=== PATIENT | female | born 1975 | race Caucasian/White ===

== ENCOUNTER 2024-06-30 00:43 | Day surgery (SDC) | payer OTHER, SELFPAY ==
[2024-06-23 09:49] VITALS: BMI 40.1
--- NOTE | 2024-06-23 09:57 | PC.NURSE ---
Report to the Outpatient Waiting Room, entrance under the green pavilion located off [facility], at time _0930_ on date _[id number]_. Planned Procedure Time: _1130_.? Time changes happen often and if your time is changed the preop area will call you the afternoon before. - You and your visitor will be asked to self-screen and do not enter if you have any COVID symptoms. Please call surgeon if you need to reschedule. - A mask is optional within the hospital at this time. Patients may have clear liquids (water, carbonated beverages, clear teas, apple juice) until 3 hours prior to surgery with a maximum of 20 ounces. - No food from midnight until time of surgery and no smoking Take only the following medications with a SIP of water on the morning of surgery: __None____ DO NOT STOP ANY OF YOUR OTHER PRESCRIPTION MEDICATIONS PRIOR TO SURGERY EXCEPT THE FOLLOWING Medications to discontinue per physician __Stop aspirin per Dr Safia Odom's office instruction. Date to take last dose Please no make-up, nail uzbek, hairspray, perfume, deodorant, or body powder the day of surgery.? No jewelry (including any body piercings) or valuables the day of surgery, leave them at home.? Please take a shower or bath the night before, or the morning of, surgery with an antibacterial soap.? Wear comfortable, loose fitting clothing.? - Jewelry must be removed prior to entering the operating room.? Rings and piercings that are not removed may be cut off. - The hospital will not accept responsibility for valuables.? - Please leave all valuables, including medications, at home the day of surgery. If you are going home after surgery, a licensed boat driver must drive you home.? - NO public transportation without another adult if you receive anesthesia. - We recommend that an adult stay with you for 24 hours following discharge. - We also recommend that you do not drive, make important decision, drink alcoholic beverages, or take any drugs that were not prescribed by your health care provider for at least 24 hours after your discharge time. Follow any additional instructions given to you from your surgeon. Telephone instructions given to _Kerri__and asked if any additional questions and then verbalized understanding. Patient advised to call surgeon office or pre surgery nurse liaison [phone] if any additional questions.
--- NOTE | 2024-06-27 07:44 | PM.IMHP ---
H&P: HPI History of Present Illness Date/Time: 06/27/24 07:44 Chief Complaint: pelvic pain/ excessive heavy bleeding/ enlarged uterus/prolapse Narrative: 48-year-old female admitted for robotic hysterectomy and bilateral salpingectomy secondary to an enlarged uterus pelvic pain and excessive heavy bleeding. This patient has had a previous ablation which has failed to satisfy her bleeding. Risks and benefits of this procedure reviewed including exclusive of , aspiration pneumonia, bleeding, transfusion, perforation injury to bowel, bladder, ureters, or other internal organs with need for open laparotomy. She received the [employer] handout entitled hysterectomy as well as the de Gurvinder handout. She had all questions answered. She asked to proceed [facility], [facility] Social History Social History Years smoked: 30 Smoking status: Current every day smoker Tobacco type: cigarettes Substance use type: marijuana Other substance usage details: Several times daily Living arrangements: with family Spiritual care concerns: No Meds Home Medications and Allergies Home Medications Medication Instructions Recorded Confirmed Type aspirin 81 mg tablet,delayed 81 mg PO DAILY 06/23/24 06/23/24 History release ferrous sulfate 325 mg (65 mg 325 mg PO DAILY 06/23/24 06/23/24 History iron) tablet ropinirole 1 mg tablet 1 mg PO HS PRN Restless Leg(S) 06/23/24 06/23/24 History Allergies Allergy/AdvReac Type Severity Reaction Status Date / Time No Known Allergies Allergy Verified 06/23/24 09:48 Exam Const: General: cooperative, healthy appearing and comfortable Nutritional Appearance: overweight Orientation/consciousness: oriented to person, oriented to place and oriented to time HENMT: Head: normal to inspection Resp: Effort & Inspection: normal respiratory effort Cardio: Rate: regular rate Rhythm: regular rhythm Heart sounds: S1 normal heart sound present and S2 normal heart sound present GI: Inspection: normal to inspection : External Female Exam: normal external appearance Speculum Exam - Vagina: normal appearance of the vagina Speculum Exam - Cervix: normal appearance of the cervix Bimanual exam- vagina & uterus: enlarged, Uterine tenderness and other ( second-degree prolapse ) Bimanual Exam- Adnexa, other: normal adnexae Assessment and Plan Assessment and plan (1) Pelvic pain: Code(s): R10.2 - Pelvic and perineal pain Status: Acute (2) Enlarged uterus: Code(s): N85.2 - Hypertrophy of uterus Status: Acute (3) Uterine prolapse: Code(s): N81.4 - Uterovaginal prolapse, unspecified Status: Acute (4) Excessive bleeding: Code(s): R58 - Hemorrhage, not elsewhere classified Status: Acute Assessment and Plan: will proceed with robotic total vaginal hysterectomy and bilateral salpingectomy
[2024-06-30] VITALS (11 sets, daily range): BP systolic 124–185; BP diastolic 70–105; PULSE 60–93; RESP 12–18; TEMP 36.1–36.7; O2SAT 99–100; BMI 41.4
--- NOTE | 2024-06-30 06:38 | WPDHPUPDATE1 ---
History and Physical Update Update Date/Time: 06/30/24 06:38 History and Physical has been reviewed, including an updated exam of the patient. There are NO changes in the patient's condition. Risks, benefits, and alternatives have been discussed and questions answered. Patient agrees to proceed with procedure.
[2024-06-30] MEDS: LACTATED RINGERS 1,000 ML 30 ML IV CONT ×2 (10:10→12:58)
--- NOTE | 2024-06-30 10:11 | P.PNAN_ITS ---
Anes - Initial Pre Proc Eval Procedure: Operation Date: 06/30/24 11:30 Proposed Procedures p Robotic Assisted Total Vaginal Hysterectomy with Bilateral Salpingectomy - Canelo Odom MD Date/Time: 06/30/24 10:11 Surgeon: Canelo Odom MD Pre Op Diagnosis: excessive irregular bleeding, uterine prolapse, Patient Data Age: 48 Gender: F Height: 1.71 m Weight: 118.2 kg Allergies Allergy/AdvReac Type Severity Reaction Status Date / Time No Known Allergies Allergy Verified 06/23/24 09:48 Home Medications Medication Instructions Recorded Confirmed Type aspirin 81 mg tablet,delayed 81 mg PO DAILY 06/23/24 06/23/24 History release ferrous sulfate 325 mg (65 mg 325 mg PO DAILY 06/23/24 06/23/24 History iron) tablet ropinirole 1 mg tablet 1 mg PO HS PRN Restless Leg(S) 06/23/24 06/23/24 History hydrocodone 5 mg-acetaminophen 325 1 tablet PO Q4H PRN pain #20 tabs 06/30/24 Rx mg tablet Patient hx anesthesia problems: none Family hx anesthesia problems: none Results Review: All pre-operative results and documents have been reviewed as part of the pre- operative evaluation. [facility] Past Medical History Medical History (Updated 06/29/24 @ 15:55 by Errol Elizabeth DO) Anemia Surgical History Surgical History (Updated 06/29/24 @ 15:55 by Errol Elizabeth DO) History of appendectomy History of cholecystectomy History of tubal ligation Social History Social History Years smoked: 30 Smoking status: Current every day smoker Tobacco type: cigarettes Substance use type: marijuana Other substance usage details: Several times daily Living arrangements: with family Spiritual care concerns: No Anes - Eval Final PreProcedure Day of Procedure 06/30/24 10:11 Patient weight: morbidly obese Heart: regular rate and rhythm Lungs: clear to auscultation Airway: Mallampati scale class II Neurological: alert and oriented Last oral intake: >/= 8 hours ASA classification: III Emergent: no Anesthetic plan: proceed Anesthesia type and monitoring: general ETT and standard monitoring Results Review: All pre-operative results and documents have been reviewed as part of the pre- operative evaluation. Informed Consent: The patient's anesthetic plan and its attendant risks and benefits were discuss ed with the patient/family/POA. Questions were solicited and answers provided to the satisfaction of the patient/family/POA.
[2024-06-30] MEDS: ACETAMINOPHEN 500 MG TABLET 1000 MG PO ×3 (10:20→22:16)
[2024-06-30] MEDS: KETOROLAC 15 MG/ML VIAL (*BKC) IV PUSH (10:21)
[2024-06-30] MEDS: SCOPOLAMINE 1 MG PATCH 1 PATCH TRANSDERM (10:24)
[2024-06-30 10:38] LABS: BEDSIDEPREGUCG Negative (Negative)
--- NOTE | 2024-06-30 12:07 | W.PM.PROC2 ---
Procedure Note - Detailed Date of Procedure 06/30/24 Pre-op Diagnosis excessive irregular bleeding, uterine prolapse, Post-op Diagnosis Same Procedure Performed Robotic total vaginal hysterectomy bilateral salpingectomy Surgeon Canelo Odom MD Anesthesia General Indications 48 year old with uterus and pelvic pain and bleeding Findings enlarged uterus. Tubes were status post tubal ligation. Normal-appearing ovaries Description of Procedure the patient was prepped draped in the normal sterile fashion placed in the dorsal lithotomy position. Under excellent general trach anesthesia weighted speculum placed in posterior fornix vagina. Anterior lip of the cervix grasped with single-tooth tenaculum. the 10. DEENA and the 3. Cold cup were placed in uterus. The single-tooth and weighted speculum removed. A 16 German catheter was placed in bladder gloves a supraumbilical incision made. Veress needle passed in abdomen. Abdomen was filled with CO2 gas to 15 of mercury. The 8mm trocar advanced the guide provided. Downside visualized no injury seen. Patient placed in Trendelenburg 18? 8 incisions were right left lateral quadrant. Trocars without injury. Right upper quadrant incision made the 8 trocar advanced under visualization. The robot was docked. Attention was turned to the elementary school counselor. The left round ligament was grasped, burned, cut. Anterior bladder flap formed by sharply dissecting the peritoneum and reflecting the bladder caudally away from the cervix and uterus to the opposite round ligament was clamped, burned,. Next the portion of the tube that was distal from the bisected tube was taken off the left ovary and passed through the right upper quadrant incision. This was repeated on the contralateral side with the portion left tube. The utero-ovarian ligament the left was skeletonized to conserve the left ovary this was clamped, burned, cut and brought to level of previously cut round ligament. In similar fashion conserving the right ovary, the utero-ovarian ligament was clamped, burned, cut and brought to the level of previously cut round ligament. Cardinal broad ligaments on the left were serially skeletonized clamping burning cutting and bringing this down lateral edge of the uterus until the large tortuous blood vessels could be seen along the uterus. These were individually clamped, burned, cut. In similar fashion the cardinal broad ligaments on the right were serially skeletonized clamping burning cutting hugging the cervix uterus until uterine vessels could be seen on right these were individually clamped, burned, cut. Blanching the uterus was noted and a colpotomy incision made. Cervix uterus remaining portions tubes removed through the vagina. The vagina then closed continuous running 0V lock from lateral edge to lateral edge back to the midline. Irrigation undertaken until clear hemostasis was assured Cogswell term placed over the raw surface area. The robot was undocked. The gas removed from the abdomen. The trocars removed and the incisions closed with 4-0 Monocryl and glue. The patient was awakened went to recovery in satisfactory condition. All sponge, needle, instrument counts were correct. There were no immediate complications Estimated Blood Loss 25 Drains No Packing No Pathology Yes Complications No immediate complications Condition Stable Disposition PACU
--- NOTE | 2024-06-30 12:12 | PM.DS ---
DS: Admitting Diagnosis Discharge Date 07/01/2024 Admitting Diagnosis uterine prolapse/pelvic pain /uterus DS: Discharge Diagnosis Discharge Diagnosis (1) Excessive bleeding: Code(s): R58 - Hemorrhage, not elsewhere classified Status: Acute (2) Uterine prolapse: Code(s): N81.4 - Uterovaginal prolapse, unspecified Status: Acute (3) Enlarged uterus: Code(s): N85.2 - Hypertrophy of uterus Status: Acute (4) Pelvic pain: Code(s): R10.2 - Pelvic and perineal pain Status: Acute DS: Summary Hospital Course Reason for hospitalization: patient was admitted for robotic total vaginal hysterectomy bilateral salpingectomy on 06/30/2024 Hospital Course: patient's hospital course unremarkable. She remained afebrile. She was up eating regular diet voiding without difficulty, ambulating, and generally without complaints. Time Spent with Patient Time attestation: Total time spent providing and/or coordinating discharge services: Exam Const: General: cooperative, healthy appearing and comfortable Nutritional Appearance: average body habitus Orientation/consciousness: oriented to person, oriented to place and oriented to time HENMT: Head: normal to inspection Resp: Effort & Inspection: normal respiratory effort Cardio: Rate: regular rate Rhythm: regular rhythm Heart sounds: S1 normal heart sound present and S2 normal heart sound present GI: Inspection: normal to inspection and incision ( Wounds are clean dry and intact) DS: Data Data Completed and Pending Pending studies at discharge: Pending at discharge 06/30/24 11:36 Surgical [PTH] Routine Labs on day of discharge: Labs from last 24 hours 06/30/24 09:35 POC Urine HCG, Qual Negative Discharge Plan Discharge Patient Disposition: Home, Self-Care Discharge Instructions: Remove the Scopolamine patch that was placed behind your ear in 72 hours or less. Wash your hands after touching. Stand Alone Forms: General Discharge Instructions Follow-up/Referrals: Canelo Wadsworth MD [Physician] - Discharge Medications: New hydrocodone-acetaminophen 5-325 mg tablet 1 tablet PO Q4H PRN (Reason: pain) Qty: 20 0RF Continued ropinirole 1 mg tablet 1 mg PO HS PRN (Reason: Restless Leg(S)) aspirin 81 mg Tablet,Delayed Release (Dr/Ec) 81 mg PO DAILY ferrous sulfate 325 mg (65 mg iron) Tablet 325 mg PO DAILY
[2024-06-30] MEDS: fentaNYL CITRATE INJ (*CRX) 100 MCG/2 ML VIAL 25 MCG IV PUSH ×6 (12:42→13:24)
[2024-06-30] MEDS: hydrALAZINE HCL 20 MG/ML VIAL 5 MG IV PUSH (12:51)
--- NOTE | 2024-06-30 13:45 | PC.NURSE ---
Patient transferred to post room #289 via bed. Support person present. Oriented to unit, room, information board, rooming in, admission packet and security measures. Patient verbalizes understanding.
[2024-06-30] MEDS: KETOROLAC 30 MG/ML VIAL (*BKC) IV PUSH ×2 (14:10→19:45)
[2024-06-30] MEDS: DEXTROSE 5%/LACTATED RINGERS 1,000 ML 125 ML IV CONT (14:10)
[2024-06-30] MEDS: SIMETHICONE 80 MG TAB.CHEW PO (16:14)
[2024-06-30] MEDS: DOCUSATE SODIUM 100 MG CAPSULE PO (16:14)
[2024-06-30] MEDS: oxyCODONE HCL (*CRX) 5 MG TAB IR PO (19:45)
[2024-07-01] MEDS: KETOROLAC 30 MG/ML VIAL (*BKC) IV PUSH (02:10)
[2024-07-01 04:20] VITALS: BP 115/64; PULSE 58; RESP 18; TEMP 36.4; O2SAT 98
[2024-07-01] MEDS: IBUPROFEN 600 MG TABLET PO (04:20)
[2024-07-01] MEDS: ACETAMINOPHEN 500 MG TABLET 1000 MG PO (04:20)
[2024-07-01 05:10] LABS: Basophils Absolute Auto 0.1 K/mm3 (0.0-0.1); Basophils Percent Auto 0.6 % (0.2-1.2); Eosinophils Absolute Auto 0.1 K/mm3 (0-0.3); Eosinophils Percent Auto 0.5 % (0-4.4); Hematocrit 38.7 % (37.0-47.0); Hemoglobin 12.3 g/dL (12.0-15.0); Immature Granulocyte Absolute 0.05 K/mm3 (0.00-0.031); Immature Granulocyte Percent A 0.4 % (0-0.5); Lymphocytes Absolute Auto 1.76 K/mm3 (0.9-3.2); Lymphocytes Percent Auto 12.7 % (18.3-44.2); Mean Corpuscular HGB Conc 31.8 g/dl (32-36); Mean Corpuscular Hemoglobin 28.9 pg (26-34); Mean Corpuscular Volume 90.8 fl (80-100); Mean Platelet Volume 11.8 fl (7.4-10.4); Monocytes Absolute Auto 0.9 K/mm3 (0.1-0.6); Monocytes Percent Auto 6.2 % (2.6-8.5); Neutrophils Absolute Auto 11.1 K/mm3 (1.3-6.7); Neutrophils Percent Auto 79.6 % (45.5-73.1); Platelet Count Result 244 k/mm3 (150-375); Red Blood Count 4.26 M/mm3 (4.2-5.4); Red Cell Distribution Width 13.8 % (11.5-14.5); White Blood Count 13.9 K/mm3 (4.5-10.0)
--- NOTE | 2024-07-01 06:37 | P.PNOB_ITS ---
TELEPHONE OPERATOR CHIEF - A/P Postoperative Procedures: Procedures Operation Date: 06/30/24 11:30 Actual Procedure Side Surgeon p Robotic Assisted Total Vaginal Hysterectomy with Bilateral Salpingectomy Bilateral Canelo Odom MD Postoperative day: 1 Postoperative status: doing well Postoperative plan: routine post-op care and discharge Time Spent With Patient Time: Total time spent is greater than 50% in coordination of care (as documented) at patient's floor/unit and/or counseling patient: Time with patient: less than 15 minutes TELEPHONE OPERATOR CHIEF- PN:Subj Post-Op Subjective Date/time seen: 07/01/24 06:37 Subjective: patient reports feeling better, pain is well controlled and patient is tolerating oral intake Exam Narrative: inc c/d/i abd-soft, nt, nd TELEPHONE OPERATOR CHIEF - PN: Obj Data Vital Signs Vital Signs: Vital Signs - 24 hr 06/30/24 09:27 06/30/24 12:19 06/30/24 12:30 Temperature 97.0 F L 97.2 F L Pulse Rate 74 75 60 Respiratory Rate 16 14 16 Blood Pressure 124/83 172/85 H 185/105 H Pulse Oximetry 100 100 100 Oxygen Delivery Room Air Simple Face Mask Simple Face Mask Oxygen Flow Rate 8 8 06/30/24 12:45 06/30/24 13:00 06/30/24 13:15 Temperature Pulse Rate 60 70 70 Respiratory Rate 16 14 12 Blood Pressure 160/101 H 169/87 H 150/85 H Pulse Oximetry 100 100 100 Oxygen Delivery Simple Face Mask Room Air Room Air Oxygen Flow Rate 8 06/30/24 13:30 06/30/24 13:45 06/30/24 16:45 Temperature 97.3 F L 97.0 F L Pulse Rate 74 79 93 Respiratory Rate 14 16 16 Blood Pressure 153/76 H 130/83 138/70 Pulse Oximetry 100 99 100 Oxygen Delivery Room Air Oxygen Flow Rate 06/30/24 19:40 06/30/24 19:40 06/30/24 23:30 Temperature 98.1 F 97.9 F Pulse Rate 69 64 Respiratory Rate 18 18 Blood Pressure 134/71 132/76 Pulse Oximetry 99 99 Oxygen Delivery Room Air Oxygen Flow Rate 07/01/24 04:20 07/01/24 04:20 Temperature 97.6 F Pulse Rate 58 L Respiratory Rate 18 Blood Pressure 115/64 Pulse Oximetry 98 Oxygen Delivery Room Air Oxygen Flow Rate Intake/Output Intake/Output: Intake & Output 06/28/24 06/29/24 06/30/24 07/01/24 23:59 23:59 23:59 23:59 Intake Total 2380 Output Total 660 Balance 1720 Meds/Results Medications: Active Medications Generic Name Dose Route Start Last Admin Trade Name Freq PRN Reason Stop Dose Admin Acetaminophen 1,000 mg 06/30/24 18:00 07/01/24 04:20 Acetaminophen 500 Mg Tablet PO 1,000 mg Q6HR PENNY Administration Docusate Sodium 100 mg 06/30/24 17:00 06/30/24 16:14 Docusate Sodium 100 Mg Capsule PO 100 mg BID PENNY Administration Enoxaparin Sodium 40 mg 07/01/24 09:00 Enoxaparin 40 Mg/0.4 Ml Syringe SUB-Q DAILY PENNY Dextrose/Lactated Ringer's 1,000 mls @ 125 mls/hr 06/30/24 13:37 06/30/24 22:10 Dextrose 5%/Lactated Ringers IV CONT Infused .Q8H PENNY Infusion Ibuprofen 600 mg 07/01/24 12:00 07/01/24 04:20 Ibuprofen 600 Mg Tablet PO 600 mg Q6HR PENNY Administration Naloxone HCl 0.1 mg 06/30/24 13:37 Naloxone Hcl 0.4 Mg/Ml Vial IV PUSH Q2M PRN Respiratory rate less than 10 Ondansetron HCl 4 mg 06/30/24 13:37 Ondansetron Inj 4 Mg/2 Ml Vial IV PUSH Q6H PRN Nausea And Vomiting Oxycodone HCl 5 mg 06/30/24 13:37 06/30/24 19:45 Oxycodone Hcl (*Crx) 5 Mg Tab Ir PO 5 mg Q4H PRN Administration Pain Rated 4-6 Oxycodone HCl 10 mg 06/30/24 13:37 Oxycodone Hcl (*Crx) 5 Mg Tab Ir PO Q6H PRN Pain Rated 7-10 Simethicone 80 mg 06/30/24 17:00 06/30/24 16:14 Simethicone 80 Mg Tab.Chew PO 80 mg TIDWM PENNY Administration Labs 07/01/24 04:17 Labs: Laboratory Results - last 24 hr 06/30/24 07/01/24 09:35 04:17 WBC 13.9 H RBC 4.26 Hgb 12.3 Hct 38.7 MCV 90.8 MCH 28.9 MCHC 31.8 L RDW 13.8 Plt Count 244 MPV 11.8 H Immature Gran % (Auto) 0.4 Neut % (Auto) 79.6 H Lymph % (Auto) 12.7 L [place] % (Auto) 6.2 Eos % (Auto) 0.5 Baso % (Auto) 0.6 Lymph # (Auto) 1.76 [place] # (Auto) 0.9 H Eos # (Auto) 0.1 Baso # (Auto) 0.1 Abs Immat Gran (auto) 0.05 H Absolute Neuts (auto) 11.1 H Absolute Nucleated RBC 0.000 Nucleated RBC % 0.0 POC Urine HCG, Qual Negative
[2024-07-01] MEDS: SIMETHICONE 80 MG TAB.CHEW PO (07:38)
[2024-07-01] MEDS: DOCUSATE SODIUM 100 MG CAPSULE PO (07:38)
[2024-07-01] MEDS: ENOXAPARIN 40 MG/0.4 ML SYRINGE SUB-Q (07:39)
[2024-07-01] MEDS: oxyCODONE HCL (*CRX) 5 MG TAB IR PO (07:43)
[2024-07-01 08:12] VITALS: BP 134/50; PULSE 67; RESP 16; TEMP 36.6
== END 2024-07-01 08:12 | disposition home or self-care (01) ==
LOC: ANHSURGERY 10:16 → ANHOB2 13:41
PROVIDERS: Visit Provider Obstetrics & Gynecology
PROC: (CPT 58552; principal; 2024-06-30 11:30)
DX: N81.4 Uterovaginal prolapse, unspecified (principal); N93.9 Abnormal uterine and vaginal bleeding, unspecified; R10.2 Pelvic and perineal pain; N72 Inflammatory disease of cervix uteri; N87.9 Dysplasia of cervix uteri, unspecified; D64.9 Anemia, unspecified; F17.210 Nicotine dependence, cigarettes, uncomplicated; F12.90 Cannabis use, unspecified, uncomplicated; E66.01 Morbid (severe) obesity due to excess calories; Z68.41 Body mass index [BMI] 40.0-44.9, adult
CPT/HCPCS: 58552; S2900; 36415; 85025; 88307; 99199; A9270; J0360; J1100; J1171; J1650; J1885; J2003; J2250; J2405; J2704; J3010; J7030; J7120; J7121